=== PATIENT | female | born 1980 | race Caucasian/White ===

== ENCOUNTER 2017-10-26 17:11 | Emergency (ER) | payer OTHER ==
--- NOTE | 2017-10-26 17:41 | EDPHY ---
H & P Stated Complaint: anxiety, decreased PO intake, Source: Patient, [employer] Exam Limitations: Language barrier (Thai) - Personal History LMP (Females 10-55): 22-28 Days Ago Current Tetanus/Diphtheria Vaccine: Yes Current Tetanus Diphtheria and Acellular Pertussis (TDAP): Yes - Medical/Surgical History Hx Asthma: No Hx Chronic Respiratory Disease: No Hx Diabetes: No Hx Cardiac Disease: No Hx Renal Disease: No Hx Cirrhosis: No Hx Alcoholism: No Hx HIV/AIDS: No Hx Splenectomy or Spleen Trauma: No Other PMH: appy, yady - Social History Smoking Status: Never smoked Time Seen by Provider: 10/26/17 17:40 HPI/ROS: HPI: This is a 37-year-old female who presents with Chief Complaint: anxiety, decreased PO intake, pulsing sensation in abdomen Location: Periumbilical Quality: Pulsing sensation Duration: 1 month Signs and Symptoms: no fever, + nausea, no vomiting, no hematemesis, no blood in stool, no abdominal bloating, no diarrhea, no back pain, no urinary symptoms , no vaginal bleeding or discharge, no indigestion, no chest pain, no shortness of breath Timing: Acute, waxes and wane Severity: Moderate Context: Patient is generally healthy, history of cholecystectomy and appendectomy presents with really to complaints: 1. Patient noticed approximately 1 month ago a pulsing sensation in her upper abdomen periumbilical area that comes and goes intermittently. Accompanied by nausea and decreased appetite. Denies any fever/vomiting/diarrhea/abdominal pain. LMP 2-3 weeks ago. Has IUD in place. 2. Notes increased anxiety over the last several months. Denies suicidal ideation/homicidal ideation. No primary care provider. Modifying Factors: None Comment: ROS: see HPI Constitutional: No fever, no chills, no weight loss Eyes: No blurred vision Respiratory: No shortness of breath, no cough Cardiovascular: No chest pain, no palpitations Gastrointestinal: + nausea, no vomiting, no diarrhea, no hematemesis, no blood in stool Genitourinary: No dysuria, no blood in urine Extremities: No myalgias, no edema Neurologic: No weakness, no numbness Skin: No rashes, no petechiae Hematologic: No bruising, no bleeding MEDICAL/SURGICAL/SOCIAL HISTORY: Medical history: Generally healthy. Does not take any regular medications. Surgical history: Appendectomy, cholecystectomy Social history: . CONSTITUTIONAL: Extremely well-appearing, anxious, adult female, awake and alert, no obvious distress HEENT: Atraumatic and normocephalic, PERRL, EOMI. Tympanic membranes clear. Oropharynx clear, no exudate and moist pink mucosa. Airway patent. No lymphadenopathy. No meningismus. Cardiovascular: Normal S1/S2, regular rate, regular rhythm, without murmur rub or gallop. PULMONARY/CHEST: Symmetrical and nontender. Clear to auscultation bilaterally. Good air movement. No accessory muscle usage. ABDOMEN: Soft, nondistended, nontender, no rebound, no guarding, no peritoneal signs, no masses or organomegaly. No CVAT. I can actually palpate a pulsatile mass in upper midline abdomen. EXTREMITIES: 2/2 pulses, strength 5/5, no deformities, no clubbing, no cyanosis or edema. NEUROLOGICAL: no focal neuro deficits. GCS 15. SKIN: Warm and dry, no erythema. no rash. Good capillary refill. (Carmen Barrientos) Constitutional: Initial Vital Signs Temperature (C) 36.8 C 10/26/17 17:15 Heart Rate 73 10/26/17 17:15 Respiratory Rate 16 10/26/17 17:15 Blood Pressure 93/63 L 10/26/17 17:15 O2 Sat (%) 98 10/26/17 17:15 O2 Delivery Mode Room Air Allergies/Adverse Reactions: No Known Allergies Allergy (Unverified 10/26/17 17:15) Home Medications: Medication Instructions Recorded NK [No Known Home Meds] 10/26/17 Medical Decision Making - Diagnostics Imaging Results: Imaging Impressions Abdomen CTA 10/26/17 17:51 Impression: Normal CT angiography of the abdomen. Findings were communicated by telephone with Carmen Barrientos at 10/26/2017 19:17 ED Course/Re-evaluation: The patient was evaluated and managed by the physician's veterinary assistant technician. My cosignature indicates that I reviewed the chart and I agree with the findings and plan of care as documented. I am the secondary supervising physician. ( Agnieszka Kaye) Labs, oral medications, CT angio abdomen scan to further evaluate for aortic aneurysm versus dissection Vital signs reviewed and stable upon arrival. 1850: Labs reviewed and show no signs of anemia/leukocytosis/a KI/thyroid disease/electrolyte imbalance/elevated LFTs 1914: Called by radiologist who advised that CT a of the abdomen and pelvis shows no signs of aortic dissection/AAA/colitis/obstruction Reassessed patient. Reassurance provided. Advised to follow up with primary care provider regarding generalized anxiety and discuss further interventions. Does not meet M1 hold or Detainer criteria. This patient was seen under the supervision of my secondary supervising physician. I evaluated care for this patient independently. (Carmen Barrientos) Differential Diagnosis: Abdominal pain including but not limited to appendicitis, cholecystitis, gastritis and urinary tract infection. (Carmen Barrientos) - Data Points Laboratory Results: Laboratory Results 10/26/17 18:10 10/26/17 18:10 10/26/17 10/26/17 10/26/17 18:10 18:10 18:10 WBC 5.80 10^3/uL 10^3/uL (3.80-9.50) RBC 4.89 10^6/uL 10^6/uL (4.18-5.33) Hgb 14.7 g/dL g/dL (12.6-16.3) Hct 42.0 % % (38.0-47.0) MCV 85.9 fL fL (81.5-99.8) MCH 30.1 pg pg (27.9-34.1) MCHC 35.0 g/dL g/dL (32.4-36.7) RDW 12.3 % % (11.5-15.2) Plt Count 243 10^3/uL 10^3/uL (150-400) MPV 10.8 fL fL (8.7-11.7) Neut % (Auto) 59.2 % % (39.3-74.2) Lymph % (Auto) 32.6 % % (15.0-45.0) Craven % (Auto) 6.7 % % (4.5-13.0) Eos % (Auto) 0.9 % % (0.6-7.6) Baso % (Auto) 0.3 % % (0.3-1.7) Nucleat RBC Rel Count 0.0 % % (0.0-0.2) Absolute Neuts (auto) 3.43 10^3/uL 10^3/uL (1.70-6.50) Absolute Lymphs (auto) 1.89 10^3/uL 10^3/uL (1.00-3.00) Absolute Monos (auto) 0.39 10^3/uL 10^3/uL (0.30-0.80) Absolute Eos (auto) 0.05 10^3/uL 10^3/uL (0.03-0.40) Absolute Basos (auto) 0.02 10^3/uL 10^3/uL (0.02-0.10) Absolute Nucleated RBC 0.00 10^3/uL 10^3/uL (0-0.01) Immature Gran % 0.3 % % (0.0-1.1) Immature Gran # 0.02 10^3/uL 10^3/uL (0.00-0.10) Sodium 139 mEq/L mEq/L (135-145) Potassium 4.0 mEq/L mEq/L (3.5-5.2) Chloride 105 mEq/L mEq/L (97-110) Carbon Dioxide 24 mEq/l mEq/l (22-31) Anion Gap 10 mEq/L mEq/L (8-16) BUN 15 mg/dL mg/dL (7-23) Creatinine 1.0 mg/dL mg/dL (0.6-1.0) Estimated GFR > 60 Glucose 115 mg/dL H mg/dL (70-100) Calcium 9.2 mg/dL mg/dL (8.5-10.4) Total Bilirubin 0.6 mg/dL mg/dL (0.1-1.4) Conjugated Bilirubin 0.4 mg/dL mg/dL (0.0-0.5) Unconjugated Bilirubin 0.2 mg/dL mg/dL (0.0-1.1) AST 22 IU/L IU/L (14-46) ALT 35 IU/L IU/L (9-52) Alkaline Phosphatase 53 IU/L IU/L (38-126) Total Protein 6.9 g/dL g/dL (6.3-8.2) Albumin 4.1 g/dL g/dL (3.5-5.0) Lipase 119 IU/L IU/L (23-300) TSH 0.298 uIU/mL L uIU/mL (0.465-4.680) Beta HCG, Qual NEGATIVE Medications Given: Discontinued Medications Lorazepam (Ativan) 1 mg PO EDNOW ONE Stop: 10/26/17 17:49 Last Admin: 10/26/17 18:04 Dose: 1 mg Departure - Departure Disposition: Home, Routine, Self-Care Clinical Impression: Generalized anxiety disorder Condition: Good Instructions: Generalized Anxiety Disorder (ED) Additional Instructions: CT abdomen and pelvis scan today shows no acute intraabdominal process. Laboratory studies are normal. Consume a minimum of 8-10 glasses of water or electrolyte fluid replacement drinks that include Gatorade, Powerade, Pedialyte. Eat a bland diet for the next 48 hours and then slowly advance as tolerated. Please establish care with primary care provider to discuss generalized anxiety disorder. Return to the Emergency Room if symptoms do not resolve in the next 48-72 hours , you spike a fever > 102 F, or experience intractable abdominal pain/nausea/ vomiting. - La tomografia del Pelvis y el abdomen no muestra hoy ningn proceso intraabdominal aguda. - Los estudios de laboratoria son normales. - Consuma un minimo de 8-10 vasos de agua o bebidas con electrolitos sujata Gatorade, Powerade o Pedialyte. - Coma penny diera blanda por 48 horas y avance a sujata lo pueda tolerar. - Por favor establesca cuidado con un doctor de cabecera para comentar el desorden de ansiedad generalizado. - Regresa a la matilde de emergencia si los sintomas no se resuelven en 48-72 hrs, si tiene fiebre mas luis de 102 F, o si tiene un dolor/nausea/vomito intractable. Referrals: Marie Hutchins MD [Primary Care Provider] - As per Instructions Print Language: Thai
[2017-10-26] MEDS ORDERED: LORazepam 1 MG TAB PO ONE (17:48)
[2017-10-26 18:16] LABS: PLATELET COUNT 243 10^3/uL (150-400)
[2017-10-26 20:07] VITALS: BP 105/51
== END 2017-10-26 20:06 | disposition home or self-care (01) ==
DX: F41.1 Generalized anxiety disorder (principal)

== ENCOUNTER 2018-09-20 02:26 | Emergency (ER) | payer OTHER ==
[2018-09-20 02:31] VITALS: BP 113/77
[2018-09-20] MEDS ORDERED: ACETAMINOPHEN 500 MG TAB PO ONE (02:53)
--- NOTE | 2018-09-20 02:53 | EDPHY ---
H & P Stated Complaint: cough, sore throat, bodycahes, congestions since tuesday Time Seen by Provider: 09/20/18 02:38 HPI/ROS: Chief Complaint: Cough, congestion, sore throat HPI: 38-year-old healthy woman presenting with 5 days of cough, congestion, sore throat, runny nose. She has been taking ibuprofen every 8 hr with some relief but the symptoms returned. No fevers. Cough is dry nonproductive. No shortness of breath. No headache. Some mild pain with swallowing. Clots of throat clearing. No difficulty swallowing. No difficulty breathing. ROS: 10 systems were reviewed and were negative except those elements noted in the HPI. PMH: Denies Social History: No smoking, no alcohol, no recreational drug use Family History: non-contributory Physical Exam: Gen: Awake, Alert, No Distress HEENT: Nose: no rhinorrhea Eyes: PERRLA, EOMI Mouth: Moist mucosa, oropharynx is normal Neck: Supple, no JVD, no lymphadenopathy, no masses Chest: nontender, lungs clear to auscultation Heart: S1, S2 normal, no murmur Abd: Soft, non-tender, no guarding Back: no CVA tenderness, no midline tenderness Ext: no edema, non-tender Skin: no rash Neuro: CN II-XII intact, Sensation grossly intact, Strength 5/5 in bilateral upper and lower extremities - Personal History Current Tetanus/Diphtheria Vaccine: Unsure Current Tetanus Diphtheria and Acellular Pertussis (TDAP): Unsure - Medical/Surgical History Hx Asthma: No Hx Chronic Respiratory Disease: No Hx Diabetes: No Hx Cardiac Disease: No Hx Renal Disease: No Hx Cirrhosis: No Hx Alcoholism: No Hx HIV/AIDS: No Hx Splenectomy or Spleen Trauma: No Other PMH: appy, yady - Social History Smoking Status: Never smoked Constitutional: Initial Vital Signs Temperature (C) 37.3 C 09/20/18 02:29 Heart Rate 74 09/20/18 02:29 Respiratory Rate 20 09/20/18 02:29 Blood Pressure 113/77 09/20/18 02:29 O2 Sat (%) 96 09/20/18 02:29 O2 Delivery Mode Room Air Allergies/Adverse Reactions: No Known Allergies Allergy (Unverified 09/20/18 02:29) Home Medications: Medication Instructions Recorded NK [No Known Home Meds] 10/26/17 Medical Decision Making ED Course/Re-evaluation: 38-year-old woman presenting with viral URI type symptoms. She is afebrile. Vital signs are normal. Lungs are clear to auscultation. Oropharynx is normal. Will give Tylenol. Recommend [id number] cough and cold medicines , follow up with primary care. Departure - Departure Disposition: Home, Routine, Self-Care Clinical Impression: URI (upper respiratory infection) Condition: Good Instructions: Upper Respiratory Infection (ED) Additional Instructions: Alternate acetaminophen (1000 mg) with ibuprofen (400 mg) every 4 hours as needed for fevers, chills, aches or pain. You may take [id number] cough and cold medicines according to package instructions to treat her congestion and sore throat. Follow up with primary care physician in 3-4 days if symptoms are not improving. Return to the emergency department for worsening difficulty breathing, uncontrolled fever, will difficulty swallowing, or any other concerns. Referrals: Marie Hutchins MD [Primary Care Provider] - As per Instructions
== END 2018-09-20 03:02 | disposition home or self-care (01) ==
DX: J06.9 Acute upper respiratory infection, unspecified (principal)